=== PATIENT | female | born 1990 | race Caucasian/White ===

== ENCOUNTER → 2022-07-24 10:14 | Outpatient (BNVA) | payer OTHER, SELFPAY | PROVIDERS: PCP Internal Medicine; Visit Provider Anesthesiology | DX: M47.816 Spondylosis without myelopathy or radiculopathy, lumbar region (principal); M51.36 Other intervertebral disc degeneration, lumbar region; G89.4 Chronic pain syndrome | CPT/HCPCS: 99202 ==

== ENCOUNTER 2022-09-21 09:23 | Outpatient (REF) | payer OTHER, SELFPAY ==
--- NOTE | ~2022-09-21 | MR_ITS ---
EXAMINATION: MR LUMBAR SPINE WITHOUT CONTRAST CLINICAL INFORMATION: Chronic lower back and bilateral leg pain, left leg numbness COMPARISON: None TECHNIQUE: MRI of the lumbar spine was obtained using routine sequences without contrast. FINDINGS: Normal anatomic alignment. No suspicious marrow signal or focal osseous lesion. No significant marrow edema. The vertebral body heights are maintained. The intervertebral discs are of normal height and signal. The conus medullaris terminates at the level of L2. The distal spinal cord is normal in appearance. The cauda equina nerve roots appear normal. No significant abnormalities of the paraspinal musculature. Limited evaluation of the intra-abdominal structures without significant abnormalities. The abdominal aorta is of normal contour and caliber. SPINAL LEVELS: L1-L2: No significant spinal canal or neuroforaminal narrowing. L2-L3: No significant spinal canal or neuroforaminal narrowing. L3-L4: No significant spinal canal or neuroforaminal narrowing. L4-L5: No significant spinal canal or neuroforaminal narrowing. L5-S1: No significant spinal canal or neuroforaminal narrowing. MR/MR lumbar spine wo con IMPRESSION: Unremarkable examination.
== END 2022-09-21 09:24 | disposition home or self-care (01) ==
LOC: HO.MRI 09:23
PROVIDERS: PCP Internal Medicine; Visit Provider Anesthesiology
DX: M51.36 Other intervertebral disc degeneration, lumbar region (principal); M47.816 Spondylosis without myelopathy or radiculopathy, lumbar region; G89.4 Chronic pain syndrome
CPT/HCPCS: 72148

== ENCOUNTER 2023-03-05 09:32 | Outpatient (AMB) | payer OTHER, SELFPAY ==
--- NOTE | 2023-03-05 09:43 | MHC.OFFVIS ---
Intake Vital Signs 03/05/23 09:47 Height 5 ft Weight 201 lb 2 oz BMI 39.3 BP 146/92 H Blood Pressure Location Lt brachial Position Sitting Respiration 12 Pulse 104 H Pulse Source Pulse Oximeter Pulse Oximetry (%) 98 Oxygen Delivery Method Room Air Intake Visit Reasons: MRI Results/lvm Intake Note: Patient comes in to discuss MRI results. Reports pain 7/10. Allergies gabapentin Allergy (Unknown, Verified 03/05/23 09:47) nausae, vomiting, confusion No Known Allergies Allergy (Verified 03/05/23 09:47) plastic tape Allergy (Unknown, Uncoded 08/03/16 00:00) rash Saline Allergy (Unknown, Uncoded 08/03/16 00:00) hives, pain HPI HPI Comments History of Present Illness Details Dseirae is a pleasant 32 years old female who presents in my office with complains on lower back pain with radiation of the pain into left lower extremity. She was sent for MRI and results of the MRI dictated as below. The MRI is not demonstrating any nerve root compressions, no foraminal stenosis no disc changes. Therefore I only presume that pain of this patient might be going from the facet joint arthropathy. I will schedule her for bilateral L3-L4 does ramus L5 medial branch block. The procedure will be diagnostic. I will see the patient after the procedure to evaluate the results of the procedure. Prior: She reports that her pain got worse after in 2018 however she reports that she was suffering from mild lower back pain even before that. She reports that her pain was gradually increased with time and now she it is unbearable. She cannot sleep normally cannot do activities of daily living cannot take care of herself and cannot function normally because of her pain. She is full-time student. She is self mobile. Weather changes and movements aggravate her pain. Her pain is worse in the morning and at night. Pain is severe during the daytime. . She reports that she had MRI of the lumbar spine however it was done 7 years ago. She reports that she had physical therapy to treat her pain and it was not working for her. She tried NSAIDs for her pain and did not helping her pain. She is taking cyclobenzaprine and amitriptyline and it does not help her pain. She went for [facility] pain management in she received 2 presumably epidural steroid injections. She reported that the epidural steroid injections did not help her pain. Review of Systems Const All systems reviewed & are unremarkable except as noted in HPI and below ENT Reports Normal hearing present Neuro Reports Normal hearing present, Denies Abnormal speech present, Denies confusion and Denies Sensory deficit (Neuro) Psych Denies confusion Physical Exam Vital Signs: Last Vital Signs Pulse 104 H 03/05/23 09:47 Resp 12 03/05/23 09:47 BP 146/92 H 03/05/23 09:47 Pulse Ox 98 03/05/23 09:47 Oxygen Delivery Method Room Air 03/05/23 09:47 BMI result Body Mass Index 39.3 Const General: no acute distress; No confusion Orientation/consciousness: patient oriented x3 and No confusion Eyes General: appearance normal, both eyes and all related structures Pupils: Equal, round and reactive pupils present EOM: EOMs intact bilaterally Neck Neck: Yes full ROM Chest Chest palpation & inspection: normal inspection of the chest Resp Effort & Inspection: normal respiratory effort, able to speak in complete sentences, normal respiratory pattern, no audible wheezes and no cough Cardio Jugular venous distension: no JVD GI Inspection: Yes normal to inspection Back/Spine/Pelvis Other: She is able to stand on bilateral tiptoes, she is able to stand on bilateral heels however with much more difficulty compared to bilateral tiptoes. She is unable to lift her major toe from the ground in separation of from the other toes. This may be evident of some L5 nerve root pathology. SLR is positive for pain increase. Mostly on the left. Lassegue tests and maximal SLR causes for the pain aggravation in the back. Mono test is equivocal on the left and negative on the right. However there is significant tenderness on palpation in the projection of bilateral sacroiliac joints. Flexing forward and flexing backwards both aggravate her pain. However flexing backwards does aggravate her pain more than flexing forward. There is significant tenderness on palpation in paraspinal as well as midline spinal region. Neuro General: patient oriented x3, gait normal and No confusion Cranial nerves: Yes CN's II-XII intact bilaterally, Yes Equal, round and reactive pupils present, Yes Normal hearing present and Yes Ability to bilaterally elevate shoulders present Speech: No Abnormal speech present Gait exam (Neuro): Normal gait present Motor exam (neuro): 5/5 motor strength present throughout Sensory Exam: No Sensory deficit (Neuro) Extrem General: No pedal edema Psych Speech and movement: Normal speech and movement present Affect: normal affect Attitude: cooperative Thought process: Normal thought process present Thought content: Normal thought content present Insight: Good insight present (Psych) Judgement: Good judgement present (Psych) Results Reviewed Results Reviewed: MRI of the lumbar spine was obtained using routine sequences without contrast. FINDINGS: Normal anatomic alignment. No suspicious marrow signal or focal osseous lesion. No significant marrow edema. The vertebral body heights are maintained. The intervertebral discs are of normal height and signal. The conus medullaris terminates at the level of L2. The distal spinal cord is normal in appearance. The cauda equina nerve roots appear normal. No significant abnormalities of the paraspinal musculature. Limited evaluation of the intra-abdominal structures without significant abnormalities. The abdominal aorta is of normal contour and caliber. SPINAL LEVELS: L1-L2: No significant spinal canal or neuroforaminal narrowing. L2-L3: No significant spinal canal or neuroforaminal narrowing. L3-L4: No significant spinal canal or neuroforaminal narrowing. L4-L5: No significant spinal canal or neuroforaminal narrowing. L5-S1: No significant spinal canal or neuroforaminal narrowing. 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 Therefore I have to presume that most of the pain is coming from facet joints. I will schedule her for bilateral L3-L4 does ramus L5 medial branch block. I will see this patient after the procedure. Coding Level of Care Code Est Pt Level 3 (48847) Diagnoses Spondylosis of lumbar region without myelopathy or radiculopathy M47.816 Chronic pain syndrome G89.4
[2023-03-05 09:47] VITALS: BP 146/92; PULSE 104; RESP 12; O2SAT 98; BMI 39.3
== END 2023-03-05 10:02 | disposition home or self-care (01) ==
PROVIDERS: PCP Internal Medicine; Visit Provider Anesthesiology
DX: M47.816 Spondylosis without myelopathy or radiculopathy, lumbar region (principal); G89.4 Chronic pain syndrome
CPT/HCPCS: 99213

== ENCOUNTER → 2023-03-05 09:32 | Outpatient (BNVA) | payer OTHER, SELFPAY | PROVIDERS: PCP Internal Medicine; Visit Provider Anesthesiology | DX: M47.816 Spondylosis without myelopathy or radiculopathy, lumbar region (principal); G89.4 Chronic pain syndrome | CPT/HCPCS: 99212 ==

== ENCOUNTER 2023-04-03 06:13 | Outpatient (REF) | payer OTHER, SELFPAY ==
--- NOTE | ~2023-04-03 | FL_ITS ---
INDICATION: Intraoperative fluoroscopy. FLUOROSCOPY: Fluoroscopy Time: 0.9 minutes Dose/air kerma: 39.7 mGy Images saved: 6 FINDINGS: Multiple intraoperative fluoroscopic images are submitted during procedure of the lumbar spine. Correlation with operative report. Evaluation is limited secondary to fluoroscopic technique. IMPRESSION: Intra-operative fluoroscopic imaging provided by radiology during procedure of the lumbar spine. Please refer to operative note for further information.
== END 2023-04-03 06:14 | disposition home or self-care (01) ==
LOC: CF 06:13
PROVIDERS: Visit Provider Anesthesiology
DX: M47.816 Spondylosis without myelopathy or radiculopathy, lumbar region (principal); G89.4 Chronic pain syndrome
CPT/HCPCS: 64493; 64494; J2795; Q9967

== ENCOUNTER 2023-04-03 13:53 | Outpatient (AMB) | payer OTHER, SELFPAY ==
[2023-04-03 14:02] VITALS: BP 114/74; BP 122/90; PULSE 103; PULSE 93; RESP 16; O2SAT 100; O2SAT 99; BMI 39.3
--- NOTE | 2023-04-03 14:02 | A.OFFVIS_ITS ---
Intake Vital Signs 04/03/23 14:02 04/03/23 14:02 Height 5 ft 5 ft Weight 201 lb 201 lb BMI 39.3 39.3 BP 114/74 122/90 H Blood Pressure Location Lt brachial Lt brachial Position Sitting Sitting Respiration 16 16 Pulse 103 H 93 Pulse Source Pulse Oximeter Pulse Oximeter Pulse Oximetry (%) 100 99 Oxygen Delivery Method Room Air Room Air Comment pre-op post-op Intake Visit Reasons: BILATERAL DIAGNOSTIC L3, L4, DRL5 MBB Allergies gabapentin Allergy (Unknown, Verified 04/03/23 14:43) nausae, vomiting, confusion No Known Allergies Allergy (Verified 04/03/23 14:43) plastic tape Allergy (Unknown, Uncoded 08/03/16 00:00) rash Saline Allergy (Unknown, Uncoded 08/03/16 00:00) hives, pain Physical Exam Vital Signs: Last Vital Signs Pulse 93 04/03/23 14:02 Resp 16 04/03/23 14:02 BP 122/90 H 04/03/23 14:02 Pulse Ox 99 04/03/23 14:02 Oxygen Delivery Method Room Air 04/03/23 14:02 BMI result Body Mass Index 39.3 Assessment & Plan Assessment & Plan (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 ? ?Informed consent was explained to the patient. All questions were explained and? answered.? The patient was taken inside the operating room where she was positioned prone on the operating table. Time-out was performed delineating correct site, side, the nature of the procedure, patient's allergy, . All operating room staff was participating in OR time-out procedure. ? ? The lower back was prepped with ChloraPrep and draped with sterile towels.? C- arm was brought over the operating field and sq picture of L4-, L5 vertebra and S1 AREA were delineated on the screen.? Point of interest were delineated as confluence of superior articular process of L4 and L5 vertebra bilaterally with corresponding transverse processes as well as confluence of the sacral alae bilaterally with superior articular process of S1.? The projection of the point of interest to the skin were injected with the small amount of local anesthetic lidocaine 2% 1-1.5 cc.? After that 22 gauge 5 inch spinal needle was driven sequentially to the points of interest in tunnel vision fashion. The needle advancement was very difficult. The patient has massive subcutaneous fat and to drive the needles to the point in tunnel vision fashion perpendicular to the skin and target most of the points I had to advanced the needle all the way to the hub. After needles gently contacted the bone at the point of interests the needle was injected with small amount of the contrast.? The injection of the contrast did not demonstrate any intravascular or intrathecal spread of the contrast.? After that injection of the? ropivacaine 0.5%-1cc was performed at each needle location.??after that the needles were removed and Bandaids were applied. ? Upon completion of the injections? needle was? removed and sterile Band-Aids were applied.? The patient tolerated procedure very well. RFA would be very poor option for this patient she is morbidly obese and even longest needle for RFA we have here would be a difficult if not impossible exercise to get into her targets. Plan Despite all my suspicions about radiculopathy the MRI of this patient is completely normal. Therefore I have to presume that most of the pain is coming from facet joints. I will schedule her for bilateral L3-L4 does ramus L5 medial branch block. I will see this patient after the procedure. Orders: Orders FL guidance in treatment room 04/03/23 M47.816 - Spondylosis without myelopathy or radiculopathy, lumbar region Coding Level of Care Code Procedure Only Diagnoses Spondylosis of lumbar region without myelopathy or radiculopathy M47.816 Chronic pain syndrome G89.4
== END 2023-04-03 14:33 | disposition home or self-care (01) ==
LOC: HO.PMCPRC 13:53
PROVIDERS: PCP Internal Medicine; Visit Provider Anesthesiology
DX: M47.816 Spondylosis without myelopathy or radiculopathy, lumbar region (principal); G89.4 Chronic pain syndrome
CPT/HCPCS: 64493; 64494

== ENCOUNTER 2023-04-11 12:59 | Outpatient (AMB) | payer OTHER, SELFPAY ==
--- NOTE | 2023-04-11 13:02 | A.OFFVIS_ITS ---
Intake Vital Signs 04/11/23 13:11 Height 5 ft Weight 203 lb BMI 39.6 BP 138/90 H Blood Pressure Location Lt brachial Position Sitting Respiration 14 Pulse 90 Pulse Source Pulse Oximeter Pulse Oximetry (%) 97 Oxygen Delivery Method Room Air Intake Visit Reasons: BILATERAL DIAGNOSTIC L3, L4, DRL5 MBB/04/03/23 Intake Note: Patient comes in for post-op appointment. Reports pain 6/10. Allergies gabapentin Allergy (Unknown, Verified 04/03/23 14:43) nausae, vomiting, confusion No Known Allergies Allergy (Verified 04/03/23 14:43) plastic tape Allergy (Unknown, Uncoded 08/03/16 00:00) rash Saline Allergy (Unknown, Uncoded 08/03/16 00:00) hives, pain HPI HPI Comments History of Present Illness Details Desirae is back in my office after diagnostic medial branch block L3- L4 dorsal ramus L5 bilateral. She reports today that after the procedure her condition did not improve. She reported that immediately after the procedure her pain was 8/10. 1 hour after procedure her pain was 7/10. 2 hours after procedure pain was 6/10. After that the pain started to get better however patient was not able to differentiate how long her pain relief was lasting because she went to bed and slept through the night. In the morning her pain became 6/10. I can not make this procedure a diagnostic indication of facet arthropathy as a pain generator for this patient. Her MRI is quite innocent. Therefore I can only make a conclusion that her pain is myofascial in nature. I recommended her topical medications, continue cyclobenzaprine, try to lose some weight, and topical CBD oil OTC. Prior: She reports that her pain got worse after in 2018 however she reports that she was suffering from mild lower back pain even before that. She reports that her pain was gradually increased with time and now she it is unbearable. She cannot sleep normally cannot do activities of daily living cannot take care of herself and cannot function normally because of her pain. She is full-time student. She is self mobile. Weather changes and movements aggravate her pain. Her pain is worse in the morning and at night. Pain is severe during the daytime. She reports that she had physical therapy to treat her pain and it was not working for her. She tried NSAIDs for her pain and did not helping her pain. She is taking cyclobenzaprine and amitriptyline and it does not help her pain. She went for [facility] pain management in she received 2 presumably epidural steroid injections. She reported that the epidural steroid injections did not help her pain. Review of Systems Const All systems reviewed & are unremarkable except as noted in HPI and below ENT Reports Normal hearing present Neuro Reports Normal hearing present, Denies Abnormal speech present, Denies confusion and Denies Sensory deficit (Neuro) Psych Denies confusion Physical Exam Const General: no acute distress; No confusion Orientation/consciousness: patient oriented x3 and No confusion Eyes General: appearance normal, both eyes and all related structures Pupils: Equal, round and reactive pupils present EOM: EOMs intact bilaterally Neck Neck: Yes full ROM Chest Chest palpation & inspection: normal inspection of the chest Resp Effort & Inspection: normal respiratory effort, able to speak in complete sentences, normal respiratory pattern, no audible wheezes and no cough Cardio Jugular venous distension: no JVD GI Inspection: Yes normal to inspection Back/Spine/Pelvis Other: She is able to stand on bilateral tiptoes, she is able to stand on bilateral heels however with much more difficulty compared to bilateral tiptoes. She is unable to lift her major toe from the ground in separation of from the other toes. This may be evident of some L5 nerve root pathology. SLR is positive for pain increase. Mostly on the left. Lassegue tests and maximal SLR causes for the pain aggravation in the back. Mono test is equivocal on the left and negative on the right. However there is significant tenderness on palpation in the projection of bilateral sacroiliac joints. Flexing forward and flexing backwards both aggravate her pain. However flexing backwards does aggravate her pain more than flexing forward. There is significant tenderness on palpation in paraspinal as well as midline spinal region. Neuro General: patient oriented x3, gait normal and No confusion Cranial nerves: Yes CN's II-XII intact bilaterally, Yes Equal, round and reactive pupils present, Yes Normal hearing present and Yes Ability to bilaterally elevate shoulders present Speech: No Abnormal speech present Gait exam (Neuro): Normal gait present Motor exam (neuro): 5/5 motor strength present throughout Sensory Exam: No Sensory deficit (Neuro) Extrem General: No pedal edema Psych Speech and movement: Normal speech and movement present Affect: normal affect Attitude: cooperative Thought process: Normal thought process present Thought content: Normal thought content present Insight: Good insight present (Psych) Judgement: Good judgement present (Psych) Results Reviewed Results Reviewed: MRI of the lumbar spine was obtained using routine sequences without contrast. FINDINGS: Normal anatomic alignment. No suspicious marrow signal or focal osseous lesion. No significant marrow edema. The vertebral body heights are maintained. The intervertebral discs are of normal height and signal. The conus medullaris terminates at the level of L2. The distal spinal cord is normal in appearance. The cauda equina nerve roots appear normal. No significant abnormalities of the paraspinal musculature. Limited evaluation of the intra-abdominal structures without significant abnormalities. The abdominal aorta is of normal contour and caliber. SPINAL LEVELS: L1-L2: No significant spinal canal or neuroforaminal narrowing. L2-L3: No significant spinal canal or neuroforaminal narrowing. L3-L4: No significant spinal canal or neuroforaminal narrowing. L4-L5: No significant spinal canal or neuroforaminal narrowing. L5-S1: No significant spinal canal or neuroforaminal narrowing. 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 ? Plan Despite all my suspicions about radiculopathy the MRI of this patient is completely normal. Medial branch block is not effective for pain control in the 1st 6 hours after the procedure therefore can not consider diagnostic medial branch block an indication that the patient has significant facet arthropathy. Therefore I recommend the patient to continue conservative therapy. Continue cyclobenzaprine and amitriptyline, continue home exercise program, try topical medications to the lower back, try CBD oil to the lower back topical. Coding Level of Care Code Est Pt Level 3 (06338) Diagnoses Spondylosis of lumbar region without myelopathy or radiculopathy M47.816 Chronic pain syndrome G89.4
[2023-04-11 13:11] VITALS: BP 138/90; PULSE 90; RESP 14; O2SAT 97; BMI 39.6
== END 2023-04-11 13:18 | disposition home or self-care (01) ==
PROVIDERS: PCP Internal Medicine; Visit Provider Anesthesiology
DX: M47.816 Spondylosis without myelopathy or radiculopathy, lumbar region (principal); G89.4 Chronic pain syndrome
CPT/HCPCS: 99213

== ENCOUNTER → 2023-04-11 12:59 | Outpatient (BNVA) | payer OTHER, SELFPAY | PROVIDERS: PCP Internal Medicine; Visit Provider Anesthesiology | DX: M47.816 Spondylosis without myelopathy or radiculopathy, lumbar region (principal); G89.4 Chronic pain syndrome | CPT/HCPCS: 99212 ==